=== PATIENT | female | born 1935 | race Hispanic/Latino ===

== ENCOUNTER 2018-01-24 12:55 | Outpatient (CLI) | payer MEDICARE, MEDICAID ==
--- NOTE | 2018-01-24 15:21 | ULT ---
RENAL ULTRASOUND: History: Chronic kidney disease. FINDINGS: Both kidneys measure approximately 9 cm in length. There is no evidence of hydronephrosis. Cortical e chogenicity appears normally maintained. The bladder is contracted and not adequately evaluated. Bladder volume recorded at 24 cc. IMPRESSION: Unremarkable renal ultrasound. POS: [facility]
== END 2018-01-24 12:56 | disposition home or self-care (01) ==
LOC: BICULT 12:55
PROVIDERS: ATTEND Internal Medicine Nephrology
DX: N18.3 Chronic kidney disease, stage 3 (moderate) (principal)
CPT/HCPCS: 76770

== ENCOUNTER 2023-12-02 08:35 | Outpatient (CLI) | payer OTHER | END 2023-12-02 08:36 | disposition home or self-care (01) | LOC: SCSMRI 08:35 | PROVIDERS: ATTEND Family Medicine | DX: G62.9 Polyneuropathy, unspecified (principal); M51.34 Other intervertebral disc degeneration, thoracic region; M48.04 Spinal stenosis, thoracic region; M48.05 Spinal stenosis, thoracolumbar region; R60.0 Localized edema; G95.89 Other specified diseases of spinal cord; M25.78 Osteophyte, vertebrae; M47.815 Spondylosis without myelopathy or radiculopathy, thoracolumbar region | CPT/HCPCS: 72146 ==

== ENCOUNTER 2025-02-18 17:21 | Inpatient (IN) | payer OTHER ==
[2025-02-18 19:38] LABS: #Basophils 0.05 10x3/uL (0.0-0.2); #Eosinophils 0.22 10x3/uL (0.0-0.7); #Monocytes 0.65 10x3/uL (0.11-0.59); #Neutrophils 5.70 10x3/uL (1.40-6.50); %Basophils 0.5 % (0.0-1.0); %Eosinophils 2.2 % (0.0-10.0); %Lymphocytes 33.1 % (21.0-51.0); %Monocytes 6.6 % (0.0-10.0); %Neutrophils 57.4 % (42.0-75.0); Hematocrit 42.4 % (36.0-47.0); Hemoglobin 14.0 g/dL (12.0-16.0); Mean Corpuscular Hemoglobin 29.8 pg (27.0-31.0); Mean Corpuscular Volume 90.2 fL (78.0-98.0); Platelet Count 193 10x3/uL (130-400); Red Blood Cell (RBC) Count 4.70 mill/uL (4.20-5.40); White Blood Cell (WBC) Count 9.92 10x3/uL (4.8-10.8)
[2025-02-18 20:05] LABS: ALT (SGPT) 14 U/L (Less than 34); AST (SGOT) 22 U/L (11-34); Albumin 3.7 g/dL (3.1-4.5); Alkaline Phosphatase 144 U/L (40-110); Anion Gap 13 mmol/L (10-20); BUN (Urea Nitrogen) 22 mg/dL (9.8-20.1); Bilirubin, Total 1.0 mg/dL (0.3-1.2); Calc. Creatinine Clearance 0 mL/min (70-130); Calcium 9.6 mg/dL (7.8-10.44); Carbon Dioxide 25 mmol/L (23-31); Chloride 105 mmol/L (98-107); Globulin 3.4 g/dL (2.4-3.5); Glucose 158 mg/dL (83-110); Potassium 4.4 mmol/L (3.5-5.1); Sodium 139 mmol/L (136-145)
[2025-02-18 20:07] LABS: Glucose, Urine (Dipstick) Negative (Negative); Leukocyte Small (Negative); Protein, Urine (Dipstick) Negative (Neg-Trace); Specific Gravity, Urine 1.010 (1.005-1.030)
[2025-02-18 20:41] LABS: CAUTI Indications for Culture Dysuria,urgency,freq; RBC/HPF 0-3 HPF (0-3)
[2025-02-18 20:42] LABS: Bacteria/HPF 4+ HPF (None Seen); Urine Culture Reflex No No
[2025-02-18] MEDS ORDERED: cloNIDine 0.1 MG TAB ONE (22:07)
[2025-02-18] MEDS ORDERED: Cephalexin 250 MG CAP ONE (22:07)
[2025-02-18] MEDS ORDERED: Calcium Carbonate 500 MG ChewTAB PO PRN (23:58)
[2025-02-18] MEDS ORDERED: Ondansetron PF 4 MG/2 ML Vial IVP PRN (23:58)
[2025-02-19] MEDS ORDERED: Dextrose 50% Abboject 50 ML SYRINGE SLOW IVP PRN (00:13)
[2025-02-19] MEDS ORDERED: Glucagon 1 MG/ML KIT IM PRN (00:13)
[2025-02-19] MEDS ORDERED: cefTRIAXone\\ROCEPHIN 1 GM in Sodium Chloride 0.9% 100 ML IVPB SCH (00:15)
[2025-02-19] MEDS ORDERED: Nitroglycerin 2% Ointment 1 INCH/1 GM Packet ONE (00:23)
[2025-02-19] MEDS: Nitroglycerin 2% Ointment 1 INCH/1 GM Packet TOP SCH (00:40)
[2025-02-19] MEDS ORDERED: cefTRIAXone (ROCEPHIN) 1 GM VIAL ONE (01:33)
[2025-02-19] MEDS: cefTRIAXone\\ROCEPHIN 1 GM in Sodium Chloride 0.9% 100 ML IVPB SCH (01:36)
[2025-02-19 07:53] LABS: #Basophils 0.04 10x3/uL (0.0-0.2); #Eosinophils 0.21 10x3/uL (0.0-0.7); #Monocytes 0.58 10x3/uL (0.11-0.59); #Neutrophils 4.13 10x3/uL (1.40-6.50); %Basophils 0.5 % (0.0-1.0); %Eosinophils 2.8 % (0.0-10.0); %Lymphocytes 33.3 % (21.0-51.0); %Monocytes 7.8 % (0.0-10.0); %Neutrophils 55.3 % (42.0-75.0); Hematocrit 38.3 % (36.0-47.0); Hemoglobin 12.8 g/dL (12.0-16.0); Mean Corpuscular Hemoglobin 30.1 pg (27.0-31.0); Mean Corpuscular Volume 90.1 fL (78.0-98.0); Platelet Count 171 10x3/uL (130-400); Red Blood Cell (RBC) Count 4.25 mill/uL (4.20-5.40); White Blood Cell (WBC) Count 7.47 10x3/uL (4.8-10.8)
[2025-02-19 08:12] LABS: ALT (SGPT) 12 U/L (Less than 34); AST (SGOT) 17 U/L (11-34); Albumin 3.3 g/dL (3.1-4.5); Alkaline Phosphatase 127 U/L (40-110); Anion Gap 13 mmol/L (10-20); BUN (Urea Nitrogen) 19 mg/dL (9.8-20.1); Bilirubin, Total 0.9 mg/dL (0.3-1.2); Calc. Creatinine Clearance 58 mL/min (70-130); Calcium 9.0 mg/dL (7.8-10.44); Carbon Dioxide 21 mmol/L (23-31); Cardiac Risk 2.7 (Less than 4.5); Chloride 109 mmol/L (98-107); Cholesterol 85 mg/dl (< 200 Desired); Globulin 3.1 g/dL (2.4-3.5); Glucose 119 mg/dL (83-110); HDL Cholesterol 32 mg/dL (>60 Neg Risk); LDL Cholesterol, Calculated 35 mg/dL; Potassium 4.1 mmol/L (3.5-5.1); Sodium 139 mmol/L (136-145); Triglycerides 89 mg/dL (Less than 150)
[2025-02-19] MEDS ORDERED: Aspirin 81 mg Enteric Coated Tablet ONE (08:55)
[2025-02-19] MEDS ORDERED: Enoxaparin 40 MG (0.4 mL) SYRINGE ONE (08:55)
[2025-02-19] MEDS ORDERED: Atenolol 50 MG TAB PO SCH (09:00)
[2025-02-19] MEDS ORDERED: Losartan 25 MG TAB ONE (09:01)
[2025-02-19] MEDS: Enoxaparin 40 MG (0.4 mL) SYRINGE SC SCH (09:04)
[2025-02-19] MEDS: Aspirin 81 mg Enteric Coated Tablet PO SCH (09:05)
[2025-02-19] MEDS: Losartan 25 MG TAB PO SCH (09:06)
[2025-02-19 11:15] VITALS: BMI 34.0
[2025-02-19] MEDS: hydrALAZINE 20 MG/ML VIAL SLOW IVP PRN (11:18)
[2025-02-19] MEDS: Atenolol 50 MG TAB PO SCH (12:14)
[2025-02-19] MEDS: Senokot S 8.6-50 MG TAB PO PRN (20:15)
[2025-02-20] MEDS: Atenolol 50 MG TAB PO SCH ×2 (09:06→12:02)
[2025-02-20] MEDS: Spironolactone 25 MG TAB PO SCH ×2 (09:06→17:07)
[2025-02-20] MEDS: Acetaminophen 325 MG TAB PO PRN (09:13)
[2025-02-20] MEDS: metFORMIN XR 500 MG ER.TAB PO SCH (12:02)
[2025-02-20] MEDS: hydrALAZINE 10 MG TAB PO SCH (19:08)
[2025-02-21] MEDS: Atenolol 50 MG TAB PO SCH (08:28)
[2025-02-21] MEDS: metFORMIN XR 500 MG ER.TAB PO SCH (08:28)
[2025-02-21] MEDS: Spironolactone 25 MG TAB PO SCH (08:29)
[2025-02-21 11:01] VITALS: BP 146/71; TEMP 98.6
== END 2025-02-21 13:06 | disposition home or self-care (01) | DRG 305 ==
LOC: ERS 17:21 → SUATTDRO 17:21 → ERHOLD 23:53 → OBS 02-19 11:05
PROVIDERS: ADMIT Internal Medicine; ATTEND Family Medicine
DX: I10 Essential (primary) hypertension (principal); N39.0 Urinary tract infection, site not specified; E66.9 Obesity, unspecified; E11.9 Type 2 diabetes mellitus without complications; I44.7 Left bundle-branch block, unspecified; M19.90 Unspecified osteoarthritis, unspecified site; E78.5 Hyperlipidemia, unspecified; Z88.5 Allergy status to narcotic agent; Z68.34 Body mass index [BMI] 34.0-34.9, adult; Z79.899 Other long term (current) drug therapy; Z79.82 Long term (current) use of aspirin; Z79.84 Long term (current) use of oral hypoglycemic drugs
CPT/HCPCS: 36415; 36416; 70450; 70551; 71046; 80053; 80061; 81001; 83036; 84443; 84484; 85025; 85379; 87086; 93005; 93306; 93880; J0360; J0696; J1650; J7030